=== PATIENT | female | born 1960 | race Caucasian/White ===

== ENCOUNTER 2022-02-09 09:41 | Emergency (ER) | payer OTHER ==
[2022-02-09 09:50] VITALS: BP 162/74; PULSE 56; TEMP 97.7; BMI 30.9
[2022-02-09] MEDS ORDERED: FLUORESCEIN NA 1 EA STRIP OD ONE (10:00)
[2022-02-09] MEDS ORDERED: TETRACAINE 0.5% HCL 0.6ML DROPPER.BOTTLE OD ONE (10:00)
== END 2022-02-09 10:20 | disposition home or self-care (01) ==
LOC: JERFT 09:41
DX: S05.01XA Injury of conjunctiva and corneal abrasion without foreign body, right eye, initial encounter (principal); W60.XXXA Contact with nonvenomous plant thorns and spines and sharp leaves, initial encounter
CPT/HCPCS: 99283-25

== ENCOUNTER 2023-10-21 04:49 | Day surgery (SDC) | payer OTHER ==
[2023-10-16 10:57] VITALS: BMI 25.7
[2023-10-21 12:23] VITALS: TEMP 98.6
[2023-10-21 12:30] VITALS: BP 125/61; PULSE 62; RESP 18
== END 2023-10-21 12:11 | disposition home or self-care (01) ==
LOC: JASU-ENDO 04:49
PROVIDERS: ATTEND Internal Medicine Gastroenterology
PROC: 0DBP8ZX Excision of Rectum, Via Natural or Artificial Opening Endoscopic, Diagnostic (ICD-10-PCS; 2023-10-21)
PROC: 0DBH8ZX Excision of Cecum, Via Natural or Artificial Opening Endoscopic, Diagnostic (ICD-10-PCS; principal; 2023-10-21 10:30)
DX: Z12.11 Encounter for screening for malignant neoplasm of colon (principal); D12.1 Benign neoplasm of appendix; D12.8 Benign neoplasm of rectum; K57.30 Diverticulosis of large intestine without perforation or abscess without bleeding; K64.8 Other hemorrhoids
CPT/HCPCS: 88305-TC

== ENCOUNTER 2025-03-06 08:58 | Inpatient (IN) | payer OTHER ==
[2025-03-06] MEDS ORDERED: ACETAMINOPHEN INJECTION 100 ML ONE (09:34)
[2025-03-06 09:48] LABS: EPI CELLS 4 /uL (0-25.1); HYALINE CASTS 0 /uL (0-3.1); URINE APPEARANCE CLOUDY; URINE BACTERIA >9,000 /uL (0-1359); URINE BILIRUBIN 1+ (NEGATIVE); URINE COLOR DK YELLOW; URINE GLUCOSE (UA) NEGATIVE (NEGATIVE); URINE KETONE NEGATIVE (NEGATIVE); URINE LEUK ESTERASE 3+ (NEGATIVE); URINE NITRITE POSITIVE (NEGATIVE); URINE PROTEIN 1+ (NEGATIVE); URINE RBC 27 /uL (0-23.9); URINE UROBILINOGEN 1.0 mg/dL (0.2-1.0); URINE WBC 2805 /uL (0-25.8)
[2025-03-06] MEDS: ACETAMINOPHEN 1000 MG/100 ML BAG IVPB ONE (09:50)
[2025-03-06] MEDS: SODIUM CHLORIDE 1,000 ML IV STA (09:53)
[2025-03-06 09:59] LABS: ABSOLUTE IMMATURE GRANULOCYTES 0.04 x10^3/uL (0.0-0.031); BASOPHILS # 0.09 x10^3/uL (0.01-0.08); EOSINOPHIL % 0.4 % (0.7-5.8); EOSINOPHILS # 0.05 x10^3/uL (0.04-0.36); MCHC 33.0 g/dl (32.2-35.5); MEAN CELL VOLUME 100.2 fl (79.4-94.8); MEAN PLT VOLUME 10.8 fl (9.4-12.3); MONOCYTE # 0.86 x10^3/uL (0.24-0.86); MONOCYTE % 6.8 % (4.7-12.5); RDW 12.2 % (12.4-16.4)
[2025-03-06] MEDS ORDERED: CEFTRIAXONE 1 GM/50 ML BAG ONE (10:24)
[2025-03-06 10:33] LABS: CO2 24.0 mmol/L (21-32); GLUCOSE,RANDOM 120.0 mg/dL (74-106)
[2025-03-06] MEDS: CEFTRIAXONE 1,000 MG in DEXTROSE 5%-WATER - 50 ML IVPB ONE (10:33)
[2025-03-06 10:36] LABS: CREATININE 1.2 mg/dL (0.55-1.3); SGOT/AST 12.0 U/L (15-37); SGPT/ALT 24.0 U/L (13-61)
[2025-03-06 10:38] LABS: TOT PROT 7.6 g/dl (6.4-8.2)
[2025-03-06 10:39] LABS: ALK PHOS 74.0 U/L (45-117)
[2025-03-06] MEDS: LACTATED RINGERS SOLUTION 1,000 ML/1,000 ML INFUS.BAG IV SCH (13:09)
[2025-03-06] MEDS: KETOROLAC TROMETHAMINE 15 MG/ML VIAL IVPUSH PRN (14:37)
[2025-03-06 14:49] VITALS: BMI 25.2
[2025-03-06] MEDS: ACETAMINOPHEN 500 MG TABLET (FP) PO PRN (17:29)
[2025-03-06 18:25] LABS: HCV DIAGNOSTIC IN-HOUSE W/RFLX NON-REACTIVE (NONREACTIVE)
[2025-03-06] MEDS: amLODIPine BESYLATE 5 MG TABLET (FP) PO SCH (22:50)
[2025-03-06] MEDS: ATORVASTATIN CA 10 MG TABLET (FP) PO SCH (22:50)
[2025-03-07] MEDS ORDERED: PIPERACILLIN/TAZOBACTAM 3.375 GM VIAL IVPB ONE (06:54)
[2025-03-07] MEDS: PIPERACILLIN/TAZOB 3.375 GM 3.375 GM in DEXTROSE 5%-WATER - 50 ML IVPB SCH ×3 (06:55→17:48)
[2025-03-07] MEDS: SODIUM CHLORIDE 1,000 ML IV SCH (08:30)
[2025-03-07] MEDS: VANCOMYCIN/WATER 1250 MG 1,250 MG/250 ML BAG IVPB SCH ×2 (08:30→15:11)
[2025-03-07 08:56] LABS: ABSOLUTE IMMATURE GRANULOCYTES 0.06 x10^3/uL (0.0-0.031); BASOPHILS # 0.06 x10^3/uL (0.01-0.08); EOSINOPHIL % 0.1 % (0.7-5.8); EOSINOPHILS # 0.01 x10^3/uL (0.04-0.36); MCHC 33.2 g/dl (32.2-35.5); MEAN CELL VOLUME 98.4 fl (79.4-94.8); MEAN PLT VOLUME 11.2 fl (9.4-12.3); MONOCYTE # 1.15 x10^3/uL (0.24-0.86); MONOCYTE % 12.5 % (4.7-12.5); RDW 12.1 % (12.4-16.4)
[2025-03-07 09:24] LABS: CO2 23.0 mmol/L (21-32); GLUCOSE,RANDOM 114.0 mg/dL (74-106)
[2025-03-07 09:27] LABS: CREATININE 0.7 mg/dL (0.55-1.3)
[2025-03-07 09:29] LABS: INR 1.18 (0.83-1.09); PROTHROMBIN TIME (PATIENT) 12.9 SEC (9.7-13.0)
[2025-03-07] MEDS ORDERED: CEFTRIAXONE 1 G/50 ML PREMIX 50 ML IVPB SCH (10:00)
[2025-03-07] MEDS: TAMSULOSIN HCL 0.4 MG CAP PO SCH (11:40)
[2025-03-07] MEDS: POTASSIUM CHLORIDE ORAL LIQUID 20 MEQ/15 ML PO ONE (11:42)
[2025-03-07] MEDS: KCL 10 MEQ IVPB 10 MEQ/100 ML INFUS.BAG IVPB SCH (11:43)
[2025-03-07 13:36] VITALS: RESP 18
[2025-03-07] MEDS: ACETAMINOPHEN 1000 MG/100 ML BAG IVPB PRN (16:28)
[2025-03-07] MEDS: MELATONIN 5 MG TABLETS PO PRN (21:32)
[2025-03-07] MEDS: HEPARIN NA (PORCINE) 5,000 UNITS/ML 1ML VIAL SQ SCH (21:33)
[2025-03-07 23:08] LABS: HIV INTERPRETATION NEGATIVE (NEGATIVE)
[2025-03-08] MEDS ORDERED: hydrOXYzine PAMOATE 50 MG CAPSULE (FP) PO ONE (01:38)
[2025-03-08] MEDS: hydrOXYzine PAMOATE 25 MG CAPSULE (FP) PO ONE (02:00)
[2025-03-08] MEDS ORDERED: SIMETHICONE 80 MG TAB.CHEW (FP) PO PRN (07:35)
[2025-03-08 07:37] LABS: ABSOLUTE IMMATURE GRANULOCYTES 0.02 x10^3/uL (0.0-0.031); BASOPHILS # 0.04 x10^3/uL (0.01-0.08); EOSINOPHIL % 2.5 % (0.7-5.8); EOSINOPHILS # 0.14 x10^3/uL (0.04-0.36); MCHC 32.7 g/dl (32.2-35.5); MEAN CELL VOLUME 101.1 fl (79.4-94.8); MEAN PLT VOLUME 11.1 fl (9.4-12.3); MONOCYTE # 0.62 x10^3/uL (0.24-0.86); MONOCYTE % 11.2 % (4.7-12.5); RDW 12.1 % (12.4-16.4)
[2025-03-08 08:17] LABS: CO2 25.0 mmol/L (21-32); GLUCOSE,RANDOM 114.0 mg/dL (74-106)
[2025-03-08 08:19] LABS: CREATININE 0.8 mg/dL (0.55-1.3)
[2025-03-08 08:20] LABS: SGOT/AST 14.0 U/L (15-37)
[2025-03-08 08:21] LABS: ALK PHOS 49.0 U/L (45-117)
[2025-03-08 08:22] LABS: SGPT/ALT 22.0 U/L (13-61)
[2025-03-08 08:41] LABS: TOT PROT 5.5 g/dl (6.4-8.2)
[2025-03-08] MEDS: NAPH,MB-DB/K PH,MBDB POWDER PACKET PO ONE (11:10)
[2025-03-08] MEDS: SODIUM CHLORIDE 1,000 ML IV SCH (13:33)
[2025-03-08] MEDS: hydrOXYzine PAMOATE 25 MG CAPSULE (FP) PO PRN (22:26)
[2025-03-09] MEDS: CEFTRIAXONE 1 GM in DEXTROSE 5%-WATER - 50 ML IVPB SCH (09:18)
[2025-03-09] MEDS: amLODIPine BESYLATE 5 MG TABLET (FP) PO SCH (09:18)
[2025-03-09 09:23] VITALS: BP 130/62; PULSE 79; TEMP 98.6
[2025-03-09] MEDS ORDERED: CEFTRIAXONE 2 GM-D5W BAG 2 GM/50 ML BAG IVPB SCH (10:00)
[2025-03-09 10:03] LABS: ABSOLUTE IMMATURE GRANULOCYTES 0.01 x10^3/uL (0.0-0.031); BASOPHILS # 0.04 x10^3/uL (0.01-0.08); EOSINOPHIL % 5.1 % (0.7-5.8); EOSINOPHILS # 0.28 x10^3/uL (0.04-0.36); MCHC 33.0 g/dl (32.2-35.5); MEAN CELL VOLUME 99.1 fl (79.4-94.8); MEAN PLT VOLUME 11.4 fl (9.4-12.3); MONOCYTE # 0.63 x10^3/uL (0.24-0.86); MONOCYTE % 11.6 % (4.7-12.5); RDW 12.1 % (12.4-16.4)
[2025-03-09 10:54] LABS: CO2 24.0 mmol/L (21-32); GLUCOSE,RANDOM 96.0 mg/dL (74-106)
[2025-03-09 10:57] LABS: CREATININE 0.6 mg/dL (0.55-1.3); SGOT/AST 19.0 U/L (15-37); SGPT/ALT 28.0 U/L (13-61)
[2025-03-09 11:00] LABS: ALK PHOS 55.0 U/L (45-117); TOT PROT 5.6 g/dl (6.4-8.2)
[2025-03-09] MEDS: NAPH,MB-DB/K PH,MBDB POWDER PACKET PO ONE (11:50)
== END 2025-03-09 13:25 | disposition home or self-care (01) | DRG 690 ==
LOC: JER 08:58 → JERBED 11:09 → J5S 14:26 → OBSVTOIN 03-08 09:22
PROVIDERS: ADMIT Internal Medicine
DX: N13.6 Pyonephrosis (principal); I10 Essential (primary) hypertension; E78.5 Hyperlipidemia, unspecified; B96.20 Unspecified Escherichia coli [E. coli] as the cause of diseases classified elsewhere; N83.201 Unspecified ovarian cyst, right side; E03.9 Hypothyroidism, unspecified
CPT/HCPCS: 0241U-QW; 36415; 74176-TC; 76830-TC; 80048; 80053; 81003; 82105; 83735; 84100; 85025; 85610; 86304; 86803; 86850; 86900; 86901; 87040; 87086; 87389; 99291; G0378